=== PATIENT | female | born 1980 | race Caucasian/White ===

== ENCOUNTER → 2017-02-11 | Outpatient (CLI) | payer BC ==
--- NOTE | 2017-02-11 20:02 | XR ---
EXAMINATION TYPE: XR Hip Complete RT DATE OF EXAM: 02/11/2017 COMPARISON: NONE HISTORY: 36 year-old female right hip pain for 2 days TECHNIQUE: 2 views FINDINGS: There is mild degenerative spurring at the right hip. Anterior femoral head neck junction osseous exc rescence is noted. The superior margin of the acetabulum appears prominent. Overall hip joint space i s maintained. No acute fracture or dislocation. IMPRESSION: 1. Mild degenerative changes in the right hip with relatively maintained joint space at this time. 2. Correlate for possible mixed pincer and CAM type femoral acetabular impingement syndrome as a poss ible etiology for the accelerated degenerative change.
== END | disposition home or self-care (01) ==
LOC: RADXRMAIN 17:09
PROVIDERS: ATTEND Family Medicine
DX: M25.851 Other specified joint disorders, right hip (principal); M25.551 Pain in right hip
CPT/HCPCS: 73502

== ENCOUNTER 2019-02-01 13:34 | Emergency (ER) | payer BC ==
[2019-02-01 13:47] VITALS: RESP 18; TEMP 98
[2019-02-01 15:28] LABS: Glucose,Whole Blood 125 mg/dL (75-99)
[2019-02-01] MEDS ORDERED: KETOROLAC 30 MG/ML 1 ML VIAL IVP STA (15:28)
[2019-02-01] MEDS ORDERED: SODIUM CHLORIDE 0.9% 1,000 ML IV STA (15:28)
[2019-02-01 15:59] LABS: Anisocytosis Slight; Basophils % (A) 0 %; Eosinophils # (A) 0.3 k/uL (0-0.7); Eosinophils % (A) 2 %; HCT 42.9 % (34.0-46.0); HGB 13.7 gm/dL (11.4-16.0); Lymphocytes # (A) 2.4 k/uL (1.0-4.8); Lymphocytes % (A) 21 %; MCH 27.2 pg (25.0-35.0); MCHC 32.1 g/dL (31.0-37.0); MCV 84.9 fL (80.0-100.0); Mean Platelet Volume 6.5; Monocytes # (A) 0.4 k/uL (0-1.0); Monocytes % (A) 3 %; Neutrophils # (A) 8.4 k/uL (1.3-7.7); Neutrophils % (A) 72 %; Platelet Count 365 k/uL (150-450); RBC 5.05 m/uL (3.80-5.40); RDW 16.1 % (11.5-15.5); WBC 11.6 k/uL (3.8-10.6)
[2019-02-01 16:07] LABS: ALT 19 U/L (9-52); AST 18 U/L (14-36); African American GFR (CKD) >90 (>60 ml/min/1.73 sqM); Albumin 4.2 g/dL (3.5-5.0); Alkaline Phosphatase 106 U/L (38-126); Anion Gap 11 mmol/L; Blood Urea Nitrogen 10 mg/dL (7-17); Calcium 9.1 mg/dL (8.4-10.2); Carbon Dioxide 23 mmol/L (22-30); Chloride 105 mmol/L (98-107); Creatine Kinase 24 U/L (30-135); Glucose 139 mg/dL (74-99); Potassium 4.2 mmol/L (3.5-5.1); Sodium 139 mmol/L (137-145); Total Bilirubin 0.3 mg/dL (0.2-1.3); Total Protein 8.1 g/dL (6.3-8.2)
--- NOTE | 2019-02-01 16:17 | ED ---
General Adult HPI - General Chief complaint: Recheck/Abnormal Lab/Rx Stated complaint: Dizzy, Sore, Head & Neck Pain Time Seen by Provider: 02/01/19 15:13 Source: patient, RN notes reviewed Mode of arrival: wheelchair Limitations: no limitations - History of Present Illness Initial comments: 38-year-old female with a past medical history of hypertension, NIDDM, PCO S presents for muscle aches. Patient states that over the past several months this has occurred several times where all her muscles ache. States she usually discussed to bed and then this discomfort resolves. However patient states when this started last night she went to bed and expected it to go away. This burning she woke up and she still had some muscle aches. States there th roughout her neck and shoulders arms and legs. Denies fevers or chills. Denies cough congestion sore throat. Denies any difficulty walking. States she has not been drinking fluids because it hurts to move. Patient has no other complaints at this time including shortness of breath, chest pain, abdominal pain, nausea or vomiting, headache, or visual changes. - Related Data Home Medications Medication Instructions Recorded Confirmed Dapagliflozin Propanediol [Farxiga] 10 mg PO HS 02/01/19 02/01/19 Lisinopril [Zestril] 5 mg PO HS 02/01/19 02/01/19 Sertraline HCl [Zoloft] 200 mg PO DAILY 02/01/19 02/01/19 Zolpidem Tartrate [Ambien] 10 mg PO HS PRN 02/01/19 02/01/19 buPROPion HCL [Wellbutrin Sr] 100 mg PO HS 02/01/19 02/01/19 sitaGLIPtin PHOSPHATE [Januvia] 100 mg PO HS 02/01/19 02/01/19 Allergies Allergy/AdvReac Type Severity Reaction Status Date / Time metformin Allergy Abdominal Verified 02/01/19 15:36 Pain Review of Systems ROS Statement: Those systems with pertinent positive or pertinent negative responses have been documented in the HPI. ROS Other: All systems not noted in ROS Statement are negative. Past Medical History Past Medical History: Diabetes Mellitus, Hypertension Additional Past Medical History / Comment(s): POLYCYSTIC OVARIAN SYNDROME History of Any Multi-Drug Resistant Organisms: None Reported Past Surgical History: No Surgical Hx Reported Additional Past Surgical History / Comment(s): BREAST BIOPSY. WISDOM TEETH Past Psychological History: Anxiety, Bipolar, Depression Smoking Status: Never smoker Past Alcohol Use History: None Reported Past Drug Use History: None Reported General Exam Limitations: no limitations General appearance: alert, in no apparent distress Head exam: Present: atraumatic, normocephalic, normal inspection Eye exam: Present: normal appearance, PERRL, EOMI. Absent: scleral icterus, conjunctival injection, periorbital swelling ENT exam: Present: normal exam, mucous membranes moist Neck exam: Present: normal inspection, full ROM. Absent: tenderness, meningismus, lymphadenopathy Respiratory exam: Present: normal lung sounds bilaterally. Absent: respiratory distress, wheezes, rales, rhonchi, stridor Cardiovascular Exam: Present: regular rate, normal rhythm, normal heart sounds. Absent: systolic murmur, diastolic murmur, rubs, gallop, clicks Extremities exam: Present: other (Strength 5 out of 5 in all extremities.). Absent: calf tenderness (No calf tenderness noted.) Neurological exam: Present: alert, oriented X3, normal gait Psychiatric exam: Present: anxious Course Vital Signs 02/01/19 13:44 Temperature 98.0 F Pulse Rate 83 Respiratory 18 Rate Blood Pressure 120/74 O2 Sat by Pulse 99 Oximetry Medical Decision Making - Medical Decision Making 38-year-old female presents with a past medical history of hypertension, NIDDM, PCO S presents for muscle aches. This has been ongoing for several months but usually goes away after she goes to sleep. States that today it did not go away when she expected it to. States it hurts or her generalized muscles. Denies fevers or chills. Denies cough congestion or sore throat. CBC CMP unremarkable. Creatine kinase 24. TSH is normal. Patient was given fluids and Toradol, feeling better at this time. However recommended close follow-up with primary care for additional workup as this has been ongoing for months. Patient does agree to this. She'll return here if she has any worsening symptoms. - Lab Data Result diagrams: 02/01/19 15:47 02/01/19 15:47 Lab Results 02/01/19 02/01/19 02/01/19 Range/Units 15:25 15:47 15:47 WBC 11.6 H (3.8-10.6) k/uL RBC 5.05 (3.80-5.40) m/uL Hgb 13.7 (11.4-16.0) gm/dL Hct 42.9 (34.0-46.0) % MCV 84.9 (80.0-100.0) fL MCH 27.2 (25.0-35.0) pg MCHC 32.1 (31.0-37.0) g/dL RDW 16.1 H (11.5-15.5) % Plt Count 365 (150-450) k/uL Neutrophils % 72 % Lymphocytes % 21 % Monocytes % 3 % Eosinophils % 2 % Basophils % 0 % Neutrophils # 8.4 H (1.3-7.7) k/uL Lymphocytes # 2.4 (1.0-4.8) k/uL Monocytes # 0.4 (0-1.0) k/uL Eosinophils # 0.3 (0-0.7) k/uL Basophils # 0.0 (0-0.2) k/uL Anisocytosis Slight Sodium 139 (137-145) mmol/L Potassium 4.2 (3.5-5.1) mmol/L Chloride 105 (98-107) mmol/L Carbon Dioxide 23 (22-30) mmol/L Anion Gap 11 mmol/L BUN 10 (7-17) mg/dL Creatinine 0.60 (0.52-1.04) mg/dL Est GFR (CKD-EPI)AfAm >90 (>60 ml/min/1.73 sqM) Est GFR (CKD-EPI)NonAf >90 (>60 ml/min/1.73 sqM) Glucose 139 H (74-99) mg/dL POC Glucose (mg/dL) 125 H (75-99) mg/dL POC Glu E [employer] Specialist ID [place], Rahel Calcium 9.1 (8.4-10.2) mg/dL Total Bilirubin 0.3 (0.2-1.3) mg/dL AST 18 (14-36) U/L ALT 19 (9-52) U/L Alkaline Phosphatase 106 (38-126) U/L Creatine Kinase 24 L (30-135) U/L Total Protein 8.1 (6.3-8.2) g/dL Albumin 4.2 (3.5-5.0) g/dL TSH (0.465-4.680) mIU/L 02/01/19 Range/Units 15:47 WBC (3.8-10.6) k/uL RBC (3.80-5.40) m/uL Hgb (11.4-16.0) gm/dL Hct (34.0-46.0) % MCV (80.0-100.0) fL MCH (25.0-35.0) pg MCHC (31.0-37.0) g/dL RDW (11.5-15.5) % Plt Count (150-450) k/uL Neutrophils % % Lymphocytes % % Monocytes % % Eosinophils % % Basophils % % Neutrophils # (1.3-7.7) k/uL Lymphocytes # (1.0-4.8) k/uL Monocytes # (0-1.0) k/uL Eosinophils # (0-0.7) k/uL Basophils # (0-0.2) k/uL Anisocytosis Sodium (137-145) mmol/L Potassium (3.5-5.1) mmol/L Chloride (98-107) mmol/L Carbon Dioxide (22-30) mmol/L Anion Gap mmol/L BUN (7-17) mg/dL Creatinine (0.52-1.04) mg/dL Est GFR (CKD-EPI)AfAm (>60 ml/min/1.73 sqM) Est GFR (CKD-EPI)NonAf (>60 ml/min/1.73 sqM) Glucose (74-99) mg/dL POC Glucose (mg/dL) (75-99) mg/dL POC Glu E [employer] Specialist ID Calcium (8.4-10.2) mg/dL Total Bilirubin (0.2-1.3) mg/dL AST (14-36) U/L ALT (9-52) U/L Alkaline Phosphatase (38-126) U/L Creatine Kinase (30-135) U/L Total Protein (6.3-8.2) g/dL Albumin (3.5-5.0) g/dL TSH 0.985 (0.465-4.680) mIU/L Disposition Clinical Impression: Generalized muscle ache Disposition: HOME SELF-CARE Condition: Good Instructions (If sedation given, give patient instructions): Musculoskeletal Pain (ED) Additional Instructions: These take Motrin and Tylenol for pain. Follow-up with primary care soon as possible. If symptoms worsen return immediately to the emergency department. Is patient prescribed a controlled substance at d/c from ED?: No Referrals: Artie Angel DO [Primary Care Provider] - 1-2 days Time of Disposition: 16:56
[2019-02-01 17:16] VITALS: BP 125/75; PULSE 68
== END 2019-02-01 17:14 | disposition home or self-care (01) ==
LOC: EC 13:34
DX: M79.10 Myalgia, unspecified site (principal); R42 Dizziness and giddiness; E11.9 Type 2 diabetes mellitus without complications; I10 Essential (primary) hypertension; F41.9 Anxiety disorder, unspecified; F31.9 Bipolar disorder, unspecified; Z79.84 Long term (current) use of oral hypoglycemic drugs; Z79.899 Other long term (current) drug therapy; Z88.8 Allergy status to other drugs, medicaments and biological substances
CPT/HCPCS: 36415; 80053; 84443; 82550; 85025; 99284; 96374; 96361; J1885

== ENCOUNTER 2019-04-14 08:24 | Emergency (ER) | payer BC ==
[2019-04-14 08:29] VITALS: TEMP 97.7
[2019-04-14] MEDS ORDERED: SODIUM CHLORIDE 0.9% 1,000 ML IV STA (08:46)
[2019-04-14] MEDS ORDERED: ONDANSETRON 4 MG/2 ML VIAL IVP STA (08:46)
[2019-04-14] MEDS ORDERED: HYDROmorphone 0.5 MG/0.5 ML SYRINGE IVP STA ×3 (08:46→11:10)
[2019-04-14 08:49] LABS: Glucose,Whole Blood 187 mg/dL (75-99)
[2019-04-14 09:01] LABS: Appearance,Urine Clear (Clear); Basophils % (A) 0 %; Bilirubin,Urine Negative (Negative); Blood,Urine Negative (Negative); Color,Urine Yellow; Eosinophils # (A) 0.3 k/uL (0-0.7); Eosinophils % (A) 2 %; Glucose,Urine (UA) 4+ (Negative); HCT 40.7 % (34.0-46.0); HGB 13.2 gm/dL (11.4-16.0); Ketones,Urine Negative (Negative); Leukocyte Esterase,Urine Negative (Negative); Lymphocytes # (A) 1.5 k/uL (1.0-4.8); Lymphocytes % (A) 11 %; MCH 27.7 pg (25.0-35.0); MCHC 32.5 g/dL (31.0-37.0); MCV 85.2 fL (80.0-100.0); Mean Platelet Volume 6.3; Monocytes # (A) 0.4 k/uL (0-1.0); Monocytes % (A) 3 %; Neutrophils # (A) 11.5 k/uL (1.3-7.7); Neutrophils % (A) 83 %; Nitrite,Urine Negative (Negative); PH, Urine 5.5 (5.0-8.0); Platelet Count 331 k/uL (150-450); Protein,Urine Negative (Negative); RBC 4.78 m/uL (3.80-5.40); RDW 14.5 % (11.5-15.5); Urobilinogen,Urine <2.0 mg/dL (<2.0); WBC 13.8 k/uL (3.8-10.6)
[2019-04-14 09:03] VITALS: RESP 18
[2019-04-14 09:12] LABS: ALT 23 U/L (9-52); AST 21 U/L (14-36); African American GFR (CKD) >90 (>60 ml/min/1.73 sqM); Albumin 4.1 g/dL (3.5-5.0); Alkaline Phosphatase 86 U/L (38-126); Amylase 51 U/L (30-110); Anion Gap 12 mmol/L; Blood Urea Nitrogen 15 mg/dL (7-17); Calcium 9.1 mg/dL (8.4-10.2); Carbon Dioxide 22 mmol/L (22-30); Chloride 105 mmol/L (98-107); Glucose 192 mg/dL (74-99); Non-African American GFR(CKD) >90 (>60 ml/min/1.73 sqM); Sodium 139 mmol/L (137-145); Total Bilirubin 0.5 mg/dL (0.2-1.3); Total Protein 7.7 g/dL (6.3-8.2)
[2019-04-14 09:14] LABS: Specific Gravity,Urine >1.050 (1.001-1.035)
--- NOTE | 2019-04-14 09:20 | ED ---
Abdominal Pain HPI - General Chief Complaint: Abdominal Pain Stated Complaint: TREMORS Time Seen by Provider: 04/14/19 08:31 Source: patient, RN notes reviewed Mode of arrival: ambulatory Limitations: no limitations - History of Present Illness Initial Comments: 38-year-old female presents emergency Department with chief complaint of abdominal pain. Patient states started yesterday and midepigastric region. Patient states that she started having this worsen onset of pain which seems to wax and wane. Patient states that she has spasms in her abdomen. She's had no prior abdominal surgeries. She does have nausea with one episode of vomiting no diarrhea no constipation or dysuria no hematuria. Patient has a known diabetic controlled on oral medications. That the pain does wax and wane does not radiate to her flank, back or chest. - Related Data Home Medications Medication Instructions Recorded Confirmed Dapagliflozin Propanediol [Farxiga] 10 mg PO HS 02/01/19 04/14/19 Lisinopril [Zestril] 5 mg PO HS 02/01/19 04/14/19 Sertraline HCl [Zoloft] 200 mg PO DAILY 02/01/19 04/14/19 Zolpidem Tartrate [Ambien] 10 mg PO QAM PRN 02/01/19 04/14/19 buPROPion HCL [Wellbutrin Sr] 100 mg PO HS 02/01/19 04/14/19 sitaGLIPtin PHOSPHATE [Januvia] 100 mg PO HS 02/01/19 04/14/19 Previous Rx's Medication Instructions Recorded Hyoscyamine Sulfate [Levsin] 0.125 mg PO QID PRN #14 tab 04/14/19 Omeprazole [PriLOSEC] 20 mg PO AC-BRKFST #14 cap 04/14/19 Ondansetron Odt [Zofran Odt] 4 mg PO Q8HR PRN #10 tab 04/14/19 Allergies Allergy/AdvReac Type Severity Reaction Status Date / Time metformin Allergy Nausea/Vomiting/Diarrhea/STOMACH Verified 04/14/19 09:54 PAIN Review of Systems ROS Statement: Those systems with pertinent positive or pertinent negative responses have been documented in the HPI. ROS Other: All systems not noted in ROS Statement are negative. Past Medical History Past Medical History: Diabetes Mellitus, Hypertension Additional Past Medical History / Comment(s): POLYCYSTIC OVARIAN SYNDROME History of Any Multi-Drug Resistant Organisms: None Reported Past Surgical History: No Surgical Hx Reported Additional Past Surgical History / Comment(s): BREAST BIOPSY. WISDOM TEETH Past Psychological History: Anxiety, Bipolar, Depression Smoking Status: Never smoker Past Alcohol Use History: None Reported Past Drug Use History: None Reported General Exam Limitations: no limitations General appearance: alert, in no apparent distress Head exam: Present: atraumatic, normocephalic, normal inspection Eye exam: Present: normal appearance, PERRL, EOMI. Absent: scleral icterus, conjunctival injection, periorbital swelling ENT exam: Present: normal exam, normal oropharynx, mucous membranes moist, TM's normal bilaterally Neck exam: Present: normal inspection, full ROM. Absent: tenderness, meningismus, lymphadenopathy Respiratory exam: Present: normal lung sounds bilaterally. Absent: respiratory distress, wheezes, rales, rhonchi, stridor Cardiovascular Exam: Present: regular rate, normal rhythm, normal heart sounds. Absent: systolic murmur, diastolic murmur, rubs, gallop, clicks GI/Abdominal exam: Present: soft, tenderness (Moderate epigastric, mid abdominal tenderness with mild right upper quadrant), normal bowel sounds. Absent: distended, guarding, rebound, rigid Back exam: Absent: CVA tenderness (R), CVA tenderness (L) Neurological exam: Present: alert, oriented X3, CN II-XII intact Skin exam: Present: warm, dry, intact, normal color. Absent: rash Course Vital Signs 04/14/19 04/14/19 08:26 09:02 Temperature 97.7 F Pulse Rate 76 80 Respiratory 20 18 Rate Blood Pressure 152/95 129/75 O2 Sat by Pulse 100 98 Oximetry Medical Decision Making - Medical Decision Making Patient is improved after medications, IV fluids, greatest improvement after GI cocktail. Patient ultrasound SHOWS MULTIPLE GALLSTONES. LAB WORK SHOWS MILD HYPERGLYCEMIA THOUGH SHE IS KNOWN DIABETIC. SHE WAS HYDRATED, NAUSEA IS UNDER CONTROL. PATIENT WILL BE FOLLOWED UP WITH GENERAL SURGERY AT THIS TIME. RETURN PARAMETERS WERE DISCUSSED. PATIENT AGREES WITH THIS PLAN. PATIENT his charge in stable condition - Lab Data Result diagrams: 04/14/19 08:50 04/14/19 08:50 Lab Results 04/14/19 04/14/19 04/14/19 Range/Units 08:48 08:50 08:50 WBC 13.8 H (3.8-10.6) k/uL RBC 4.78 (3.80-5.40) m/uL Hgb 13.2 (11.4-16.0) gm/dL Hct 40.7 (34.0-46.0) % MCV 85.2 (80.0-100.0) fL MCH 27.7 (25.0-35.0) pg MCHC 32.5 (31.0-37.0) g/dL RDW 14.5 (11.5-15.5) % Plt Count 331 (150-450) k/uL Neutrophils % 83 % Lymphocytes % 11 % Monocytes % 3 % Eosinophils % 2 % Basophils % 0 % Neutrophils # 11.5 H (1.3-7.7) k/uL Lymphocytes # 1.5 (1.0-4.8) k/uL Monocytes # 0.4 (0-1.0) k/uL Eosinophils # 0.3 (0-0.7) k/uL Basophils # 0.0 (0-0.2) k/uL Sodium 139 (137-145) mmol/L Potassium 4.0 (3.5-5.1) mmol/L Chloride 105 (98-107) mmol/L Carbon Dioxide 22 (22-30) mmol/L Anion Gap 12 mmol/L BUN 15 (7-17) mg/dL Creatinine 0.57 (0.52-1.04) mg/dL Est GFR (CKD-EPI)AfAm >90 (>60 ml/min/1.73 sqM) Est GFR (CKD-EPI)NonAf >90 (>60 ml/min/1.73 sqM) Glucose 192 H (74-99) mg/dL POC Glucose (mg/dL) 187 H (75-99) mg/dL POC Glu Model And [employer] Maker Plaster ID Lola Montes Plasma Lactic Acid Tomasz (0.7-2.0) mmol/L Calcium 9.1 (8.4-10.2) mg/dL Total Bilirubin 0.5 (0.2-1.3) mg/dL AST 21 (14-36) U/L ALT 23 (9-52) U/L Alkaline Phosphatase 86 (38-126) U/L Troponin I (0.000-0.034) ng/mL Total Protein 7.7 (6.3-8.2) g/dL Albumin 4.1 (3.5-5.0) g/dL Amylase 51 (30-110) U/L Lipase 171 (23-300) U/L Urine Color Urine Appearance (Clear) Urine pH (5.0-8.0) Ur Specific [place] (1.001-1.035) Urine Protein (Negative) Urine Glucose (UA) (Negative) Urine Ketones (Negative) Urine Blood (Negative) Urine Nitrite (Negative) Urine Bilirubin (Negative) Urine Urobilinogen (<2.0) mg/dL Ur Leukocyte Esterase (Negative) Urine HCG, Qual (Not Detectd) 04/14/19 04/14/19 04/14/19 Range/Units 08:50 08:50 08:50 WBC (3.8-10.6) k/uL RBC (3.80-5.40) m/uL Hgb (11.4-16.0) gm/dL Hct (34.0-46.0) % MCV (80.0-100.0) fL MCH (25.0-35.0) pg MCHC (31.0-37.0) g/dL RDW (11.5-15.5) % Plt Count (150-450) k/uL Neutrophils % % Lymphocytes % % Monocytes % % Eosinophils % % Basophils % % Neutrophils # (1.3-7.7) k/uL Lymphocytes # (1.0-4.8) k/uL Monocytes # (0-1.0) k/uL Eosinophils # (0-0.7) k/uL Basophils # (0-0.2) k/uL Sodium (137-145) mmol/L Potassium (3.5-5.1) mmol/L Chloride (98-107) mmol/L Carbon Dioxide (22-30) mmol/L Anion Gap mmol/L BUN (7-17) mg/dL Creatinine (0.52-1.04) mg/dL Est GFR (CKD-EPI)AfAm (>60 ml/min/1.73 sqM) Est GFR (CKD-EPI)NonAf (>60 ml/min/1.73 sqM) Glucose (74-99) mg/dL POC Glucose (mg/dL) (75-99) mg/dL POC Glu Model And [employer] Maker Plaster ID Plasma Lactic Acid Tomasz 2.2 H* (0.7-2.0) mmol/L Calcium (8.4-10.2) mg/dL Total Bilirubin (0.2-1.3) mg/dL AST (14-36) U/L ALT (9-52) U/L Alkaline Phosphatase (38-126) U/L Troponin I <0.012 (0.000-0.034) ng/mL Total Protein (6.3-8.2) g/dL Albumin (3.5-5.0) g/dL Amylase (30-110) U/L Lipase (23-300) U/L Urine Color Urine Appearance (Clear) Urine pH (5.0-8.0) Ur Specific [place] (1.001-1.035) Urine Protein (Negative) Urine Glucose (UA) (Negative) Urine Ketones (Negative) Urine Blood (Negative) Urine Nitrite (Negative) Urine Bilirubin (Negative) Urine Urobilinogen (<2.0) mg/dL Ur Leukocyte Esterase (Negative) Urine HCG, Qual Not Detected (Not Detectd) 04/14/19 Range/Units 08:50 WBC (3.8-10.6) k/uL RBC (3.80-5.40) m/uL Hgb (11.4-16.0) gm/dL Hct (34.0-46.0) % MCV (80.0-100.0) fL MCH (25.0-35.0) pg MCHC (31.0-37.0) g/dL RDW (11.5-15.5) % Plt Count (150-450) k/uL Neutrophils % % Lymphocytes % % Monocytes % % Eosinophils % % Basophils % % Neutrophils # (1.3-7.7) k/uL Lymphocytes # (1.0-4.8) k/uL Monocytes # (0-1.0) k/uL Eosinophils # (0-0.7) k/uL Basophils # (0-0.2) k/uL Sodium (137-145) mmol/L Potassium (3.5-5.1) mmol/L Chloride (98-107) mmol/L Carbon Dioxide (22-30) mmol/L Anion Gap mmol/L BUN (7-17) mg/dL Creatinine (0.52-1.04) mg/dL Est GFR (CKD-EPI)AfAm (>60 ml/min/1.73 sqM) Est GFR (CKD-EPI)NonAf (>60 ml/min/1.73 sqM) Glucose (74-99) mg/dL POC Glucose (mg/dL) (75-99) mg/dL POC Glu Model And [employer] Maker Plaster ID Plasma Lactic Acid Tomasz (0.7-2.0) mmol/L Calcium (8.4-10.2) mg/dL Total Bilirubin (0.2-1.3) mg/dL AST (14-36) U/L ALT (9-52) U/L Alkaline Phosphatase (38-126) U/L Troponin I (0.000-0.034) ng/mL Total Protein (6.3-8.2) g/dL Albumin (3.5-5.0) g/dL Amylase (30-110) U/L Lipase (23-300) U/L Urine Color Yellow Urine Appearance Clear (Clear) Urine pH 5.5 (5.0-8.0) Ur Specific [place] >1.050 H (1.001-1.035) Urine Protein Negative (Negative) Urine Glucose (UA) 4+ H (Negative) Urine Ketones Negative (Negative) Urine Blood Negative (Negative) Urine Nitrite Negative (Negative) Urine Bilirubin Negative (Negative) Urine Urobilinogen <2.0 (<2.0) mg/dL Ur Leukocyte Esterase Negative (Negative) Urine HCG, Qual (Not Detectd) Disposition Clinical Impression: Nausea & vomiting, Gall stones, Abdominal pain Disposition: HOME SELF-CARE Condition: Stable Instructions (If sedation given, give patient instructions): Abdominal Pain (E D) Additional Instructions: Please return to the Emergency Department if symptoms worsen or any other concerns. Prescriptions: Hyoscyamine Sulfate [Levsin] 0.125 mg PO QID PRN #14 tab PRN Reason: Spasms Omeprazole [PriLOSEC] 20 mg PO AC-BRKFST #14 cap Ondansetron Odt [Zofran Odt] 4 mg PO Q8HR PRN #10 tab PRN Reason: Nausea Is patient prescribed a controlled substance at d/c from ED?: No Referrals: Artie Angel DO [Primary Care Provider] - 1-2 days Dali Fischer MD [STAFF PHYSICIAN] - 1-2 days Time of Disposition: 10:51
[2019-04-14] MEDS ORDERED: DIAZEPAM 5 MG/ML 2 ML INJ IVP STA (09:28)
--- NOTE | 2019-04-14 09:41 | US ---
EXAMINATION TYPE: US gallbladder DATE OF EXAM: 04/14/2019 COMPARISON: NONE CLINICAL HISTORY: pain. epigastric pain, tremors, nausea and vomiting EXAM MEASUREMENTS: Liver Length: 20.7 cm Gallbladder Wall: 0.3 cm CBD: 0.3 cm Right Kidney: 12.0 x 4.9 x 4.4 cm Technical limitations due to patient's body habitus and patient unable to hold still Pancreas: Obscured by bowel gas Liver: enlarged, attenuating, unable to penetrate Gallbladder: stones noted Evidence for sonographic Starr's sign: yes CBD: limited evaluation Right Kidney: no evidence of hydronephrosis IMPRESSION: 1. Hepatomegaly with underlying fatty hepatic infiltration. 2. Cholelithiasis without complicating factor.
[2019-04-14] MEDS ORDERED: MAG HYDROX/AL HYDROX/SIMETH 30 ML, HYOSCYAMINE ELIXIR 10 ML PO STA ×2 (10:24)
[2019-04-14] MEDS ORDERED: ACET/COD 300 MG/30 MG STARTER PACK 6 TAB BTL PO STA (10:51)
[2019-04-14 11:02] VITALS: BP 109/63; PULSE 74
[2019-04-14] MEDS ORDERED: diphenhydrAMINE 50 MG/ML 1 ML VIAL IVP STA (11:10)
== END 2019-04-14 11:21 | disposition home or self-care (01) ==
LOC: EC 08:24
DX: K80.20 Calculus of gallbladder without cholecystitis without obstruction (principal); E11.65 Type 2 diabetes mellitus with hyperglycemia; F41.9 Anxiety disorder, unspecified; F31.9 Bipolar disorder, unspecified; I10 Essential (primary) hypertension; E28.2 Polycystic ovarian syndrome; Z79.84 Long term (current) use of oral hypoglycemic drugs; Z79.899 Other long term (current) drug therapy; Z88.8 Allergy status to other drugs, medicaments and biological substances
CPT/HCPCS: 36415; 80053; 82150; 83605; 83690; 84484; 85025; 81003; 81025; 76705; 99284; 96374; 96375 ×3; 96376 ×2; 96361; J1200; J3360; J2405; J1170

== ENCOUNTER → 2019-04-28 | Outpatient (CLI) | payer BC ==
--- NOTE | 2019-04-28 09:36 | XR ---
EXAMINATION TYPE: XR knee complete RT DATE OF EXAM: 04/28/2019 COMPARISON: None HISTORY: Pain in right knee x2 weeks TECHNIQUE: Three-view FINDINGS: No acute fractures or dislocations are evident. No significant joint effusion is evident. T iny lateral tibial plateau spur and lateral femoral condylar spur is present. May be some mild diffus e narrowing of the medial lateral compartment joint spaces. IMPRESSION: 1. Mild degenerative joint changes. 2. No acute osseous abnormality radiographically apparent.
== END | disposition home or self-care (01) ==
LOC: RADXRMAIN 08:43
PROVIDERS: ATTEND Family Medicine
DX: M17.11 Unilateral primary osteoarthritis, right knee (principal)

== ENCOUNTER 2019-06-11 09:12 | Day surgery (SDC) | payer BC ==
[2019-06-09 18:16] VITALS: BMI 43.4
--- NOTE | 2019-06-10 21:33 | P.GSHP ---
History of Present Illness H&P Date: 06/11/19 CHIEF COMPLAINT: Cholecystitis HISTORY OF PRESENT ILLNESS: The patient is a 39-year-old female who presents with history of epigastric including right upper quadrant abdominal pain. She underwent diagnostic studies for her gallbladder. Separately her clinical picture was consistent with cholecystitis. Now she presents for surgical intervention. PAST MEDICAL HISTORY: Please see list PAST SURGICAL HISTORY: Please see list MEDICATIONS: Please see list ALLERGIES: Please see list SOCIAL HISTORY: Please see list FAMILY HISTORY: Please see list REVIEW OF ORGAN SYSTEMS: CONSTITUTIONAL: No reports of fevers or chills. HEENT: Denies any troubles with the vision or hearing. PHYSICAL EXAM: VITAL SIGNS: Afebrile vital signs stable GENERAL: Well-developed pleasant in no acute distress. HEENT: No scleral icterus. Extraocular movements grossly intact. Moist buccal mucosa. NECK: Supple without lymphadenopathy. CHEST: Unlabored respirations. Equal bilateral excursions. CARDIOVASCULAR: Regular rate regular rhythm rhythm. Distal 2+ pulses. ABDOMEN: Soft, nondistended. Tender along the epigastrium and right upper quadrant. MUSCULOSKELETAL: No clubbing, cyanosis, or edema. NEURO: Cranial nerves II to XII within normal limits. No focal or lateralizing signs. PSYCH: Alert and oriented to person, place and time. SKIN: Well-perfused good skin turgor. ASSESSMENT: 1. Epigastric and right upper quadrant abdominal pain 2. Chronic cholecystitis 3. Symptomatic gallstones. PLAN: 1. Will need a robotic cholecystectomy possible open. Benefits and risks were described. 2. Heparin for DVT prophylaxis 5000 units. 3. Antibiotic prophylaxis. Past Medical History Past Medical History: Diabetes Mellitus, Hypertension, Osteoarthritis (OA) Additional Past Medical History / Comment(s): POLYCYSTIC OVARIAN SYNDROME. Varicose veins. History of Any Multi-Drug Resistant Organisms: None Reported Past Surgical History: Breast Surgery Additional Past Surgical History / Comment(s): BREAST BIOPSY. WISDOM TEETH Past Anesthesia/Blood Transfusion Reactions: Motion Sickness Smoking Status: Never smoker - Past Family History Mother Family Medical History: No Reported History Medications and Allergies Home Medications Medication Instructions Recorded Confirmed Type Dapagliflozin Propanediol [Farxiga] 10 mg PO HS 02/01/19 06/09/19 History Lisinopril [Zestril] 5 mg PO HS 02/01/19 06/09/19 History Zolpidem Tartrate [Ambien] 10 mg PO HS PRN 02/01/19 06/09/19 History sitaGLIPtin PHOSPHATE [Januvia] 100 mg PO HS 02/01/19 06/09/19 History DULoxetine HCL [Cymbalta] 60 mg PO DAILY 06/09/19 06/09/19 History Ibuprofen [Motrin] 600 mg PO DIRECTED PRN 06/09/19 06/09/19 History Allergies Allergy/AdvReac Type Severity Reaction Status Date / Time metformin Allergy Nausea/Vomiting/Diarrhea/STOMACH Verified 06/09/19 17:59 PAIN
[~2019-06-11 09:12] MED LIST: ACETAMINOPHEN TAB 500 MG TAB PO STA; DEXAMETHASONE SOD PHOSPHATE 10 MG/ML 1 ML VIAL IV ONE; GABAPENTIN 300 MG CAP PO STA; HEPARIN SODIUM,PORCINE 5,000 UNIT/ML 1 ML VIAL SQ ONE; HYDROmorphone 0.5 MG/0.5 ML SYRINGE IVP PRN; INDOCYANINE GREEN 25 MG VIAL IV STA; LACTATED RINGERS 1,000 ML IV SCH; MIDAZOLAM 2 MG/2 ML VIAL IV PRN; SCOPOLAMINE 1.5MG/72HR PATCH TRANSDERM ONE; SCOPOLAMINE 1.5MG/72HR PATCH TRANSDERM STA; ceFAZolin 3 GM in SODIUM CHLORIDE 0.9% 100 ML IVPB ONE
[2019-06-11 09:46] LABS: Glucose,Whole Blood 255 mg/dL (75-99)
[2019-06-11] MEDS ORDERED: INSULIN ASPART (NovoLOG) 100 UNIT/ML VIAL SQ ONE ×2 (09:51→14:19)
[2019-06-11] MEDS ORDERED: LIDOCAINE 1% 20 ML VIAL (10MG/ML) FOR IV START INTRADERMA ONE (09:51)
[2019-06-11] MEDS: ONDANSETRON 4 MG/2 ML VIAL IVP ONE ×2 (10:01→13:58)
[2019-06-11 10:16] LABS: HCT 39.9 % (34.0-46.0); HGB 12.7 gm/dL (11.4-16.0); MCH 27.5 pg (25.0-35.0); MCV 86.1 fL (80.0-100.0); Mean Platelet Volume 7.6; Platelet Count 341 k/uL (150-450); RBC 4.63 m/uL (3.80-5.40); RDW 14.4 % (11.5-15.5); WBC 9.6 k/uL (3.8-10.6)
[2019-06-11] MEDS ORDERED: LIDOCAINE 1% INJ 10MG/ML (20 ML MDV) ONE (11:51)
[2019-06-11] MEDS ORDERED: GLYCOPYRROLATE 0.2 MG/ML 2 ML VIAL ONE (11:51)
[2019-06-11] MEDS ORDERED: MIDAZOLAM 2 MG/2 ML VIAL ONE (11:51)
[2019-06-11] MEDS ORDERED: PROPOFOL 10 MG/ML 20 ML VIAL IV ONE (11:51)
[2019-06-11] MEDS ORDERED: ROCURONIUM BROMIDE 10 MG/ML 10 ML VIAL IV ONE (11:51)
[2019-06-11] MEDS ORDERED: fentaNYL (PF) 50 MCG/ML 2 ML AMP ONE (11:51)
[2019-06-11] MEDS ORDERED: SUCCINYLCHOLINE CHLORIDE 100 MG/5 ML SYR IV ONE (11:51)
[2019-06-11] MEDS ORDERED: NEOSTIGMINE 1 MG/ML 10 ML VIAL ONE (11:51)
[2019-06-11] MEDS ORDERED: INDOCYANINE GREEN 25 MG VIAL IV ONE (11:51)
[2019-06-11] MEDS ORDERED: KETAMINE 10 MG/ML 20 ML VIAL ONE (11:51)
[2019-06-11] MEDS ORDERED: IV FLUID CONTINUATION 1,000 ML IV ONE ×2 (11:56)
[2019-06-11] MEDS ORDERED: LIDOCAINE 2%-EPI 1:100,000 20 ML VIAL SQ ONE ×2 (12:25→12:31)
--- NOTE | 2019-06-11 13:25 | P.OP ---
Date of Procedure: 06/11/19 Description of Procedure: SURGEON: DALI FISCHER MD PREOPERATIVE DIAGNOSES: 1. Right upper quadrant abdominal pain 2. Symptomatic gallstones 3. Chronic cholecystitis 4. Diabetes type 2, [id number] 5. Depressive disorder 6. Morbid obesity due to excess calories, BMI 44.3 7. Hypertensive heart disease POSTOPERATIVE DIAGNOSES: 1. Right upper quadrant abdominal pain 2. Symptomatic gallstones 3. Chronic cholecystitis 4. Diabetes type 2, [id number] 5. Depressive disorder 6. Morbid obesity due to excess calories, BMI 44.3 7. Hypertensive heart disease OPERATION: Robotic-assisted da Ashleigh Xi laparoscopic cholecystectomy, multiport with FIREFLY ESTIMATED BLOOD LOSS: 5 mL. SPECIMENS REMOVED: Gallbladder. COMPLICATIONS: None. OPERATIVE FINDINGS: 1. Chronic cholecystitis 2. Console time 12 minutes INDICATIONS: The patient is a 39-year-old female who presents with cholelcystitis. Surgical intervention with a laparoscopic cholecystectomy was described at length including injury to the biliary tree, bleeding, infection, need for further surgery. Informed consent was obtained. Robotic assisted laparoscopic approach was described. Benefits and risks of the procedure including but not limited to bleeding, infection, injury to the biliary tree was described. Informed consent was obtained. DESCRIPTION OF PROCEDURE: Patient was brought to the operating room, placed in supine position. After general induction, the abdomen had been prepped and draped in standard sterile fashion. The robotic da Ashleigh XI system was primed. After a timeout protocol was performed, the patient had been prepped and draped in standard sterile fashion. The patient was injected with indocyanine green. A 5 mm 0 degrees laparoscopic trocar entry was performed along the left upper quadrant. The abdomen insufflated to 15 mmHg pressure which was tolerated well. Diagnostic laparoscopy demonstrated no injury to bowel viscera or mesentery. The liver surface was unremarkable. Next, two 8 mm robotic ports were placed along the right upper abdomen. The camera 8-mm port was maintained along the epigastrium. Another 8 mm port was placed along the left upper abdominal wall after exchanging the 5 mm port. Please note that the ports were placed at least 10 to 15 cm away from the target anatomy of the gallbladder. The robot was docked along the left lateral abdomen. The patient was repositioned in reverse Trendelenburg position. Using a grasper for arm 3, a grasper for arm 4, including hook cautery for arm 1, the robotic system was docked and primed as described. Instruments were interchanged by the assistant finance manager including hook cautery, Bovie cautery and clip appliers. I had sat at the console. The gallbladder fundus was retracted over the dome of the liver. Initial attention was brought to the infundibulum which was gently retracted in the inferior lateral approach. Using a grasper, the cystic duct including the cystic artery was carefully skeletonized. FIREFLY was used to identify the cystic artery and cystic structures. A critical view of safety was obtained. Large PLASTIC clips were used throughout the entire case. Using a clip manager programs 2 clips were placed proximally, and 1 clip was placed between the infundibulum and cystic duct and divided using cautery. Next, the cystic artery was similarly clipped and cauterized. Electro-Bovie cautery was used to remove the gallbladder from the hepatic fossa. Hemostasis was checked and found to be adequate. The robot was undocked. I re-scrubbed into the case. Using a 10 mm Endo Catch bag via the left upper quadrant incision, the specimen was removed from the abdominal cavity. All pneumoperitoneum instruments were evacuated from the abdominal cavity. The incisions were reapproximated using 4-0 Monocryl in an interrupted subcuticular fashion. Fascial defects were less than 8 mm in size. Please note along the trocar sites, local anesthetic was placed as a field block prior to insertion of all instruments. Liquid glue was applied to the skin. At the end of the procedure needle, sponge, and instrument count had been verified correct by the surgical supplies sterilizer. The patient was transferred to postanesthesia care unit in stable condition. Intraoperative films were shared with the patient's family who were very pleased with the level of care. Plan - Discharge Summary Discharge Rx Participant: No New Discharge Prescriptions: New Acetaminophen [Tylenol] 650 mg PO Q6HR PRN #30 capsule PRN Reason: Pain Naproxen [Naprosyn] 375 mg PO Q12HR PRN #30 tablet PRN Reason: Pain Continue sitaGLIPtin PHOSPHATE [Januvia] 100 mg PO HS Zolpidem Tartrate [Ambien] 10 mg PO HS PRN PRN Reason: Insomnia Lisinopril [Zestril] 5 mg PO HS Dapagliflozin Propanediol [Farxiga] 10 mg PO HS Ibuprofen [Motrin] 600 mg PO DIRECTED PRN PRN Reason: Pain DULoxetine HCL [Cymbalta] 60 mg PO DAILY Discharge Medication List Dapagliflozin Propanediol [Farxiga] 10 mg PO HS 02/01/19 [History] Lisinopril [Zestril] 5 mg PO HS 02/01/19 [History] Zolpidem Tartrate [Ambien] 10 mg PO HS PRN 02/01/19 [History] sitaGLIPtin PHOSPHATE [Januvia] 100 mg PO HS 02/01/19 [History] DULoxetine HCL [Cymbalta] 60 mg PO DAILY 06/09/19 [History] Ibuprofen [Motrin] 600 mg PO DIRECTED PRN 06/09/19 [History] Acetaminophen [Tylenol] 650 mg PO Q6HR PRN #30 capsule 06/11/19 [Rx] Naproxen [Naprosyn] 375 mg PO Q12HR PRN #30 tablet 06/11/19 [Rx] Follow up Appointment(s)/Referral(s): Dali Fischer MD [STAFF PHYSICIAN] - 06/15/19 Patient Instructions/Handouts: *Surgery [facility] - Scopalamine Patch Instructions, Laparoscopic Cholecystectomy (DC) Activity/Diet/Wound Care/Special Instructions: No lifting over 10 pounds in 2 weeks until Jun 25. May shower. No bath tub soaks for two weeks until Jun 25 Diet as tolerated. Use Tylenol and ibuprofen or Aleve scheduled for the next 24-48 hours for best pain relief. Use ice along incisions for the today to prevent swelling. Discharge Disposition: HOME SELF-CARE
[2019-06-11 13:27] VITALS: TEMP 97.9
[2019-06-11 13:32] LABS: Glucose,Whole Blood 286 mg/dL (75-99)
[2019-06-11 13:32] LABS: Glucose,Whole Blood 308 mg/dL (75-99)
[2019-06-11 14:20] VITALS: RESP 16
[2019-06-11] MEDS ORDERED: LACTATED RINGERS 1,000 ML IV ONE (14:20)
[2019-06-11] MEDS ORDERED: ACETAMINOPHEN TAB 325 MG TAB PO ONE (15:10)
[2019-06-11 15:20] VITALS: BP 112/74; PULSE 71
[2019-06-11 15:59] LABS: Glucose,Whole Blood 285 mg/dL (75-99)
== END 2019-06-11 16:23 | disposition home or self-care (01) ==
LOC: OR 09:12
PROVIDERS: ATTEND Surgery Plastic and Reconstructive Surgery
DX: K81.1 Chronic cholecystitis (principal); I11.9 Hypertensive heart disease without heart failure; E11.9 Type 2 diabetes mellitus without complications; E66.01 Morbid (severe) obesity due to excess calories; E28.2 Polycystic ovarian syndrome; I83.90 Asymptomatic varicose veins of unspecified lower extremity; F32.9 Major depressive disorder, single episode, unspecified; M19.90 Unspecified osteoarthritis, unspecified site; Z68.41 Body mass index [BMI] 40.0-44.9, adult; Z98.818 Other dental procedure status; Z88.8 Allergy status to other drugs, medicaments and biological substances; Z79.84 Long term (current) use of oral hypoglycemic drugs; Z79.899 Other long term (current) drug therapy
CPT/HCPCS: 47562; 81025; 88304; 85027; J2250; J1644; J1100; J2710; J0690; J2405; J2001; J3010; J0330; J2704; J1170; 93005

== ENCOUNTER 2020-09-29 12:04 | Emergency (ER) | payer BC ==
[2020-09-29 12:30] LABS: Glucose,Whole Blood 322 mg/dL (75-99)
[2020-09-29 12:32] VITALS: TEMP 97.7
--- NOTE | 2020-09-29 14:09 | ED ---
General Adult HPI - General Chief complaint: Recheck/Abnormal Lab/Rx Stated complaint: High blood sugar Time Seen by Provider: 09/29/20 13:55 Source: patient Mode of arrival: ambulatory Limitations: no limitations - History of Present Illness Initial comments: Dictation was produced using [employer] dictation software. please excuse any grammatical, word or spelling errors. Chief Complaint: 40-year-old female presents to the emergency department for hyperglycemia History of Present Illness: And 10-year-old female she's been diagnosed with diabetes for several months now. Patient states that she's been having elevated sugars for the last several days. Patient's most recent hemoglobin A1c was in the 12% range. Prior to that it was 11% range. She was started on insulin recently. She states she takes a long-acting insulin 30 mL daily. States that she recently started utilizing her glucometer and noticed that her sugars have been consistently high. States that she's been feeling dehydrated with some symptoms of neuropathy. The ROS documented in this emergency department record has been reviewed and confirmed by me. Those systems with pertinent positive or negative responses have been documented in the HPI. All other systems are other negative and/or noncontributory. PHYSICAL EXAM: General Impression: Alert and oriented x3, not in acute distress HEENT: Normocephalic atraumatic, extra-ocular movements intact, pupils equal and reactive to light bilaterally, mucous membranes moist. Cardiovascular: Heart regular rate and rhythm Chest: Able to complete full sentences, no retractions, no tachypnea Abdomen: abdomen soft, non-tender, non-distended, no organomegaly Musculoskeletal: Pulses present and equal in all extremities, no peripheral edema Motor: no focal deficits noted Neurological: CN II-XII grossly intact, no focal motor or sensory deficits noted Skin: Intact with no visualized rashes Psych: Normal affect and mood ED course: 40-year-old who presents with hyperglycemia. Patient having symptomatic hyperglycemia. Vital Signs upon arrival are within acceptable limits. Laboratory evaluation obtained. CBC, metabolic panel is unremarkable. Glucose is 308. Patient given insulin and intravenous fluids with improvement of sugars. Patient told to follow up closely with her primary care physician for more intensive outpatient diabetes management. Patient given referral to production coordinator. - Related Data Home Medications Medication Instructions Recorded Confirmed Dapagliflozin Propanediol [Farxiga] 10 mg PO HS 02/01/19 06/11/19 Zolpidem Tartrate [Ambien] 10 mg PO HS PRN 02/01/19 06/11/19 lisinopriL [Zestril] 5 mg PO HS 02/01/19 06/11/19 sitaGLIPtin PHOSPHATE [Januvia] 100 mg PO HS 02/01/19 06/11/19 DULoxetine HCL [Cymbalta] 60 mg PO DAILY 06/09/19 06/11/19 Ibuprofen [Motrin] 600 mg PO DIRECTED PRN 06/09/19 06/09/19 Previous Rx's Medication Instructions Recorded Acetaminophen [Tylenol] 650 mg PO Q6HR PRN #30 capsule 06/11/19 Naproxen [Naprosyn] 375 mg PO Q12HR PRN #30 tablet 06/11/19 Allergies Allergy/AdvReac Type Severity Reaction Status Date / Time metformin Allergy Nausea/Vomiting/Diarrhea/STOMACH Verified 09/29/20 12:32 PAIN Review of Systems ROS Statement: Those systems with pertinent positive or pertinent negative responses have been documented in the HPI. ROS Other: All systems not noted in ROS Statement are negative. Past Medical History Past Medical History: Diabetes Mellitus, Hypertension, Osteoarthritis (OA) Additional Past Medical History / Comment(s): POLYCYSTIC OVARIAN SYNDROME. Owen icose veins. History of Any Multi-Drug Resistant Organisms: None Reported Past Surgical History: Breast Surgery Additional Past Surgical History / Comment(s): BREAST BIOPSY. WISDOM TEETH Past Anesthesia/Blood Transfusion Reactions: Motion Sickness Past Psychological History: Anxiety, Bipolar, Depression Smoking Status: Never smoker Past Alcohol Use History: None Reported Past Drug Use History: None Reported - Past Family History Mother Family Medical History: No Reported History General Exam Limitations: no limitations Course Vital Signs 09/29/20 09/29/20 12:27 14:11 Temperature 97.7 F Pulse Rate 83 84 Respiratory 20 16 Rate Blood Pressure 130/90 127/89 O2 Sat by Pulse 100 98 Oximetry Medical Decision Making - Lab Data Result diagrams: 09/29/20 14:10 09/29/20 14:10 Lab Results 09/29/20 09/29/20 09/29/20 Range/Units 12:28 14:10 14:10 WBC 10.1 (3.8-10.6) k/uL RBC 4.85 (3.80-5.40) m/uL Hgb 14.5 (11.4-16.0) gm/dL Hct 43.1 (34.0-46.0) % MCV 89.0 (80.0-100.0) fL MCH 29.8 (25.0-35.0) pg MCHC 33.5 (31.0-37.0) g/dL RDW 13.5 (11.5-15.5) % Plt Count 379 (150-450) k/uL MPV 7.0 Neutrophils % 71 % Lymphocytes % 22 % Monocytes % 4 % Eosinophils % 2 % Basophils % 0 % Neutrophils # 7.2 (1.3-7.7) k/uL Lymphocytes # 2.2 (1.0-4.8) k/uL Monocytes # 0.4 (0-1.0) k/uL Eosinophils # 0.2 (0-0.7) k/uL Basophils # 0.0 (0-0.2) k/uL Sodium 136 L (137-145) mmol/L Potassium 4.4 (3.5-5.1) mmol/L Chloride 104 (98-107) mmol/L Carbon Dioxide 21 L (22-30) mmol/L Anion Gap 11 mmol/L BUN 13 (7-17) mg/dL Creatinine 0.42 L (0.52-1.04) mg/dL Est GFR (CKD-EPI)AfAm >90 (>60 ml/min/1.73 sqM) Est GFR (CKD-EPI)NonAf >90 (>60 ml/min/1.73 sqM) Glucose 308 H (74-99) mg/dL POC Glucose (mg/dL) 322 H (75-99) mg/dL POC Glu Sinter Press Operator ID Diamond Francis Calcium 9.1 (8.4-10.2) mg/dL Disposition Clinical Impression: Hyperglycemia Disposition: HOME SELF-CARE Condition: Good Instructions (If sedation given, give patient instructions): Diabetic Hyperglycemia (ED) Is patient prescribed a controlled substance at d/c from ED?: No Referrals: Izzy Graham MD [REFERRING] - 1-2 days
[2020-09-29 14:13] VITALS: BP 127/89; PULSE 84; RESP 16
[2020-09-29 14:18] LABS: Basophils % (A) 0 %; Eosinophils # (A) 0.2 k/uL (0-0.7); Eosinophils % (A) 2 %; HCT 43.1 % (34.0-46.0); HGB 14.5 gm/dL (11.4-16.0); Lymphocytes # (A) 2.2 k/uL (1.0-4.8); Lymphocytes % (A) 22 %; MCH 29.8 pg (25.0-35.0); MCHC 33.5 g/dL (31.0-37.0); Monocytes # (A) 0.4 k/uL (0-1.0); Monocytes % (A) 4 %; Neutrophils # (A) 7.2 k/uL (1.3-7.7); Neutrophils % (A) 71 %; Platelet Count 379 k/uL (150-450); RBC 4.85 m/uL (3.80-5.40); RDW 13.5 % (11.5-15.5); WBC 10.1 k/uL (3.8-10.6)
[2020-09-29 14:28] LABS: African American GFR (CKD) >90 (>60 ml/min/1.73 sqM); Anion Gap 11 mmol/L; Blood Urea Nitrogen 13 mg/dL (7-17); Calcium 9.1 mg/dL (8.4-10.2); Carbon Dioxide 21 mmol/L (22-30); Chloride 104 mmol/L (98-107); Glucose 308 mg/dL (74-99); Non-African American GFR(CKD) >90 (>60 ml/min/1.73 sqM); Potassium 4.4 mmol/L (3.5-5.1); Sodium 136 mmol/L (137-145)
[2020-09-29] MEDS ORDERED: INSULIN REGULAR 100 UNIT/ML VIAL IV ONE (14:31)
[2020-09-29] MEDS ORDERED: SODIUM CHLORIDE 0.9% 1,000 ML IV STA (14:31)
[2020-09-29 15:24] LABS: Glucose,Whole Blood 161 mg/dL (75-99)
== END 2020-09-29 16:14 | disposition home or self-care (01) ==
LOC: EC 12:04
DX: E11.65 Type 2 diabetes mellitus with hyperglycemia (principal); I10 Essential (primary) hypertension; M19.90 Unspecified osteoarthritis, unspecified site; E28.2 Polycystic ovarian syndrome; F41.9 Anxiety disorder, unspecified; F32.9 Major depressive disorder, single episode, unspecified; Z79.1 Long term (current) use of non-steroidal anti-inflammatories (NSAID); Z79.4 Long term (current) use of insulin
CPT/HCPCS: 36415; 80048; 85025; 99283

== ENCOUNTER 2021-09-29 08:56 | Emergency (ER) | payer BC ==
[2021-09-29 09:17] VITALS: RESP 16; TEMP 98.2
[2021-09-29] MEDS ORDERED: SODIUM CHLORIDE 0.9% 1,000 ML IV STA (09:32)
[2021-09-29] MEDS ORDERED: MECLIZINE 12.5 MG TAB PO STA (09:32)
--- NOTE | 2021-09-29 09:37 | ED ---
Dizziness HPI - General Chief Complaint: Dizziness Stated Complaint: dizziness Time Seen by Provider: 09/29/21 09:19 Source: patient, family, RN notes reviewed Mode of arrival: wheelchair Limitations: no limitations - History of Present Illness Initial Comments: This is a 41-year-old female who presents to the emergency department for dizziness. She states that when she woke up this morning, she went to make breakfast and sat down, and then she suddenly felt like she lost control of her body and fell to the floor. She's never had symptoms like this before. She still feels dizzy while in the emergency department. She does feel like the dizziness gets worse when she turns her head in any direction. Denies any nausea, vomiting, or hx of vertigo. Patient denies any fevers, chills, sore throat, visual changes, cough, dyspnea, chest pain, palpitations, abdominal pain, nausea, vomiting, diarrhea, constipation, dysuria, hematuria, back pain, headaches, or weakness. MD Complaint: dizziness Timing: sudden onset History of Same: No - Related Data Home Medications Medication Instructions Recorded Confirmed Dapagliflozin Propanediol [Farxiga] 10 mg PO HS 02/01/19 06/11/19 Zolpidem Tartrate [Ambien] 10 mg PO HS PRN 02/01/19 06/11/19 lisinopriL [Zestril] 5 mg PO HS 02/01/19 06/11/19 sitaGLIPtin PHOSPHATE [Januvia] 100 mg PO HS 02/01/19 06/11/19 DULoxetine HCL [Cymbalta] 60 mg PO DAILY 06/09/19 06/11/19 Ibuprofen [Motrin] 600 mg PO DIRECTED PRN 06/09/19 06/09/19 Previous Rx's Medication Instructions Recorded Acetaminophen [Tylenol] 650 mg PO Q6HR PRN #30 capsule 06/11/19 Naproxen [Naprosyn] 375 mg PO Q12HR PRN #30 tablet 06/11/19 Meclizine [Antivert] 25 mg PO BID PRN #25 tab 09/29/21 Metoclopramide [Reglan] 10 mg PO TID PRN #25 tab 09/29/21 Allergies Allergy/AdvReac Type Severity Reaction Status Date / Time metformin Allergy Nausea/Vomiting/Diarrhea/STOMACH Verified 05/21/22 09:14 PAIN Review of Systems ROS Statement: Those systems with pertinent positive or pertinent negative responses have been documented in the HPI. ROS Other: All systems not noted in ROS Statement are negative. Past Medical History Past Medical History: Diabetes Mellitus, Hypertension, Osteoarthritis (OA) Additional Past Medical History / Comment(s): POLYCYSTIC OVARIAN SYNDROME. Va ricose veins. History of Any Multi-Drug Resistant Organisms: None Reported Past Surgical History: Breast Surgery Additional Past Surgical History / Comment(s): BREAST BIOPSY. WISDOM TEETH Past Anesthesia/Blood Transfusion Reactions: Motion Sickness Past Psychological History: Anxiety, Depression Smoking Status: Never smoker Past Alcohol Use History: None Reported Past Drug Use History: None Reported - Past Family History Mother Family Medical History: No Reported History General Exam Limitations: no limitations Course Vital Signs 09/29/21 09/29/21 09/29/21 09:14 12:00 13:00 Temperature 98.2 F Pulse Rate 85 81 88 Respiratory 16 16 16 Rate Blood Pressure 118/77 121/81 115/71 O2 Sat by Pulse 98 97 97 Oximetry Medical Decision Making - Medical Decision Making This is a 41-year-old female who presents to the emergency department for dizziness. Given that symptoms are positional, this is most likely related to vertigo. She was given meclizine, fluids, and Reglan in the emergency department, and noted significant improvement in symptoms. Lab work revealed no abnormalities. Discussed with the patient that given the improvement in her symptoms, this is most likely related to vertigo and a CT is unlikely to reveal anything. I did offer to proceed with a CT scan if she felt like she needed one, however she declined. Rx for Meclizine and Reglan sent to the pharmacy. Advised she try taking these if symptoms return. Return precautions reviewed in depth, the patient is instructed to return to the emergency department with any new, worsening, or concerning symptoms. Patient verbalized understanding. This case was discussed in detail with the attending ED physician. Presentation, findings, and treatment plan discussed in detail as well. - Lab Data Result diagrams: 09/29/21 09:59 09/29/21 09:59 Lab Results 09/29/21 09/29/21 09/29/21 Range/Units 09:59 09:59 09:59 WBC 12.1 H (3.8-10.6) k/uL RBC 4.67 (3.80-5.40) m/uL Hgb 12.6 (11.4-16.0) gm/dL Hct 41.3 (34.0-46.0) % MCV 88.6 (80.0-100.0) fL MCH 27.1 (25.0-35.0) pg MCHC 30.6 L (31.0-37.0) g/dL RDW 14.8 (11.5-15.5) % Plt Count 374 (150-450) k/uL MPV 6.9 Neutrophils % 77 % Lymphocytes % 17 % Monocytes % 4 % Eosinophils % 1 % Basophils % 1 % Neutrophils # 9.3 H (1.3-7.7) k/uL Lymphocytes # 2.0 (1.0-4.8) k/uL Monocytes # 0.5 (0-1.0) k/uL Eosinophils # 0.1 (0-0.7) k/uL Basophils # 0.1 (0-0.2) k/uL Sodium 138 (137-145) mmol/L Potassium 4.3 (3.5-5.1) mmol/L Chloride 103 (98-107) mmol/L Carbon Dioxide 27 (22-30) mmol/L Anion Gap 8 mmol/L BUN 14 (7-17) mg/dL Creatinine 0.59 (0.52-1.04) mg/dL Est GFR (CKD-EPI)AfAm >90 (>60 ml/min/1.73 sqM) Est GFR (CKD-EPI)NonAf >90 (>60 ml/min/1.73 sqM) Glucose 206 H (74-99) mg/dL Calcium 8.8 (8.4-10.2) mg/dL Total Bilirubin 0.4 (0.2-1.3) mg/dL AST 16 (14-36) U/L ALT 20 (4-34) U/L Alkaline Phosphatase 81 (38-126) U/L Troponin I (0.000-0.034) ng/mL Total Protein 7.1 (6.3-8.2) g/dL Albumin 4.0 (3.5-5.0) g/dL TSH 0.500 (0.465-4.680) mIU/L Urine Color Yellow Urine Appearance Cloudy H (Clear) Urine pH 5.5 (5.0-8.0) Ur Specific [place] 1.022 (1.001-1.035) Urine Protein Negative (Negative) Urine Glucose (UA) 1+ H (Negative) Urine Ketones Negative (Negative) Urine Blood Negative (Negative) Urine Nitrite Negative (Negative) Urine Bilirubin Negative (Negative) Urine Urobilinogen <2.0 (<2.0) mg/dL Ur Leukocyte Esterase Moderate H (Negative) Urine RBC 3 (0-5) /hpf Urine WBC 3 (0-5) /hpf Ur Squamous Epith Cells 21 H (0-4) /hpf Urine Bacteria Rare H (None) /hpf Urine Mucus Occasional H (None) /hpf Urine HCG, Qual (Not Detectd) 09/29/21 09/29/21 Range/Units 09:59 09:59 WBC (3.8-10.6) k/uL RBC (3.80-5.40) m/uL Hgb (11.4-16.0) gm/dL Hct (34.0-46.0) % MCV (80.0-100.0) fL MCH (25.0-35.0) pg MCHC (31.0-37.0) g/dL RDW (11.5-15.5) % Plt Count (150-450) k/uL MPV Neutrophils % % Lymphocytes % % Monocytes % % Eosinophils % % Basophils % % Neutrophils # (1.3-7.7) k/uL Lymphocytes # (1.0-4.8) k/uL Monocytes # (0-1.0) k/uL Eosinophils # (0-0.7) k/uL Basophils # (0-0.2) k/uL Sodium (137-145) mmol/L Potassium (3.5-5.1) mmol/L Chloride (98-107) mmol/L Carbon Dioxide (22-30) mmol/L Anion Gap mmol/L BUN (7-17) mg/dL Creatinine (0.52-1.04) mg/dL Est GFR (CKD-EPI)AfAm (>60 ml/min/1.73 sqM) Est GFR (CKD-EPI)NonAf (>60 ml/min/1.73 sqM) Glucose (74-99) mg/dL Calcium (8.4-10.2) mg/dL Total Bilirubin (0.2-1.3) mg/dL AST (14-36) U/L ALT (4-34) U/L Alkaline Phosphatase (38-126) U/L Troponin I <0.012 (0.000-0.034) ng/mL Total Protein (6.3-8.2) g/dL Albumin (3.5-5.0) g/dL TSH (0.465-4.680) mIU/L Urine Color Urine Appearance (Clear) Urine pH (5.0-8.0) Ur Specific [place] (1.001-1.035) Urine Protein (Negative) Urine Glucose (UA) (Negative) Urine Ketones (Negative) Urine Blood (Negative) Urine Nitrite (Negative) Urine Bilirubin (Negative) Urine Urobilinogen (<2.0) mg/dL Ur Leukocyte Esterase (Negative) Urine RBC (0-5) /hpf Urine WBC (0-5) /hpf Ur Squamous Epith Cells (0-4) /hpf Urine Bacteria (None) /hpf Urine Mucus (None) /hpf Urine HCG, Qual Not Detected (Not Detectd) - EKG Data EKG Comments: Sinus rhythm with short SC interval. Ventricular rate 80 beats per minute, SC interval 119 ms, QRS duration 97 ms, and QTC 423 ms. - Radiology Data Radiology results: report reviewed, image reviewed Disposition Clinical Impression: BPPV (benign paroxysmal positional vertigo) Disposition: HOME SELF-CARE Instructions (If sedation given, give patient instructions): Vertigo (ED), Benign Paroxysmal Positional Vertigo (ED), Dizziness (ED) Prescriptions: Meclizine [Antivert] 25 mg PO BID PRN #25 tab PRN Reason: Vertigo Metoclopramide [Reglan] 10 mg PO TID PRN #25 tab PRN Reason: Vertigo Is patient prescribed a controlled substance at d/c from ED?: No Referrals: Artie Angel DO [Primary Care Provider] - 1-2 days
[2021-09-29 10:13] LABS: Basophils # (A) 0.1 k/uL (0-0.2); Basophils % (A) 1 %; Eosinophils # (A) 0.1 k/uL (0-0.7); Eosinophils % (A) 1 %; HCT 41.3 % (34.0-46.0); HGB 12.6 gm/dL (11.4-16.0); Lymphocytes % (A) 17 %; MCH 27.1 pg (25.0-35.0); MCHC 30.6 g/dL (31.0-37.0); MCV 88.6 fL (80.0-100.0); Mean Platelet Volume 6.9; Monocytes # (A) 0.5 k/uL (0-1.0); Monocytes % (A) 4 %; Neutrophils # (A) 9.3 k/uL (1.3-7.7); Neutrophils % (A) 77 %; Platelet Count 374 k/uL (150-450); RBC 4.67 m/uL (3.80-5.40); RDW 14.8 % (11.5-15.5); WBC 12.1 k/uL (3.8-10.6)
[2021-09-29 10:18] LABS: ALT 20 U/L (4-34); AST 16 U/L (14-36); African American GFR (CKD) >90 (>60 ml/min/1.73 sqM); Alkaline Phosphatase 81 U/L (38-126); Anion Gap 8 mmol/L; Blood Urea Nitrogen 14 mg/dL (7-17); Calcium 8.8 mg/dL (8.4-10.2); Carbon Dioxide 27 mmol/L (22-30); Chloride 103 mmol/L (98-107); Glucose 206 mg/dL (74-99); Non-African American GFR(CKD) >90 (>60 ml/min/1.73 sqM); Potassium 4.3 mmol/L (3.5-5.1); Sodium 138 mmol/L (137-145); Total Bilirubin 0.4 mg/dL (0.2-1.3); Total Protein 7.1 g/dL (6.3-8.2)
[2021-09-29 11:35] LABS: Appearance,Urine Cloudy (Clear); Bacteria,Urine Rare /hpf; Bilirubin,Urine Negative (Negative); Blood,Urine Negative (Negative); Color,Urine Yellow; Glucose,Urine (UA) 1+ (Negative); Ketones,Urine Negative (Negative); Leukocyte Esterase,Urine Moderate (Negative); Mucus,Urine Occasional /hpf; Nitrite,Urine Negative (Negative); PH, Urine 5.5 (5.0-8.0); Protein,Urine Negative (Negative); RBC,Urine 3 /hpf (0-5); Specific Gravity,Urine 1.022 (1.001-1.035); Squamous Epithelial Cell,Urine 21 /hpf (0-4); Urobilinogen,Urine <2.0 mg/dL (<2.0); WBC,Urine 3 /hpf (0-5)
[2021-09-29] MEDS ORDERED: METOCLOPRAMIDE 5 MG/ML 2 ML VIAL IVP STA (12:11)
[2021-09-29 14:15] VITALS: BP 128/81; PULSE 89
== END 2021-09-29 14:15 | disposition home or self-care (01) ==
LOC: EC 08:56
DX: H81.10 Benign paroxysmal vertigo, unspecified ear (principal); E11.9 Type 2 diabetes mellitus without complications; I10 Essential (primary) hypertension; Z88.8 Allergy status to other drugs, medicaments and biological substances
CPT/HCPCS: 36415; 93005; 80053; 84443; 84484; 85025; 81001; 81025; 99284; 96374; 96361; J2765

== ENCOUNTER → 2022-10-04 | Outpatient (CLI) | payer BC ==
[2022-10-04 10:51] LABS: Basophils # (A) 0.05 X 10*3/uL (0.00-0.10); Basophils % (A) 0.6 %; Eosinophils # (A) 0.11 X 10*3/uL (0.04-0.35); Eosinophils % (A) 1.3 %; HCT 39.5 % (37.2-46.3); Immature Grans, Automated 0.2 %; Lymphocytes # (A) 1.93 X 10*3/uL (0.90-5.00); Lymphocytes % (A) 23.2 %; MCH 26.9 pg (27.0-32.0); MCHC 30.4 g/dL (32.0-37.0); MCV 88.6 fL (80.0-97.0); Mean Platelet Volume 10.1 fL (9.5-12.2); Monocytes # (A) 0.44 X 10*3/uL (0.20-1.00); Monocytes % (A) 5.3 %; NRBC Per 100 WBC 0 /100 WBCS (0.0-0.0); Neutrophils # (A) 5.78 X 10*3/uL (1.80-7.70); Neutrophils % (A) 69.4 %; Platelet Count 344 X 10*3/uL (140-440); RBC 4.46 X 10*6/uL (4.10-5.20); RDW 14.4 % (11.5-14.5); WBC 8.33 X 10*3/uL (4.50-10.00)
[2022-10-04 11:11] LABS: Immunoglobulin E 6.16 IU/mL (0.00-114.00)
[2022-10-04 11:22] LABS: ALT 31 U/L (8-44); AST 15 U/L (13-35); African American GFR (CKD) 124.7 (60.0-200.0); Albumin 3.9 g/dL (3.8-4.9); Albumin/Globulin Ratio 1.44 (1.60-3.17); Alkaline Phosphatase 72 U/L (41-126); Amylase 46 U/L (23-121); BUN/Creat Ratio 22.86 Ratio (12.00-20.00); Calcium 9.5 mg/dL (8.7-10.3); Carbon Dioxide 23.9 mmol/L (20.0-27.5); Chloride 102 mmol/L (96-109); Chol/HDL Ratio 4.01 Ratio; Globulin 2.7 g/dL (1.6-3.3); Glucose 229 mg/dL (70-110); LDL Cholesterol,Calculated 86.6 mg/dL (0.0-131.0); Lipase 38 U/L (14-63); Non-African American GFR(CKD) 107.6 (60.0-200.0); Potassium 4.5 mmol/L (3.5-5.5); Sodium 139 mmol/L (135-145); Total Protein 6.6 g/dL (6.2-8.2)
[2022-10-04 13:38] LABS: Gliadin AB IgA, Deaminated NEGATIVE (NEGATIVE); Gliadin AB IgA, Unit 0.3 U/mL; Gliadin AB IgG, Deaminated NEGATIVE (NEGATIVE); Gliadin AB IgG, Unit <0.4 U/mL
[2022-10-04 21:28] LABS: Clam IgE <0.10 kU/L; Codfish IgE <0.10 kU/L; Egg White IgE <0.10 kU/L; Peanut IgE <0.10 kU/L; Scallop IgE <0.10 kU/L; Shrimp IgE <0.10 kU/L; Soybean IgE <0.10 kU/L; Walnut IgE (Food) <0.10 kU/L
== END | disposition home or self-care (01) ==
LOC: LABWHC1 07:44
PROVIDERS: ATTEND Nurse Practitioner Family
DX: I10 Essential (primary) hypertension (principal); K58.0 Irritable bowel syndrome with diarrhea
CPT/HCPCS: 36415; 80053; 80061; 82150; 82785; 83516; 83690; 84443; 84481; 85025; 86003

== ENCOUNTER → 2023-04-12 | Outpatient (CLI) | payer BC ==
[2023-04-12 23:15] LABS: ALT 20 U/L (8-44); AST 13 U/L (13-35); Albumin 4.2 g/dL (3.8-4.9); Albumin/Globulin Ratio 1.45 Ratio (1.60-3.17); Alkaline Phosphatase 94 U/L (41-126); BUN/Creat Ratio 22.67 Ratio (12.00-20.00); Blood Urea Nitrogen 13.6 mg/dL (9.0-27.0); Calcium 9.4 mg/dL (8.7-10.3); Carbon Dioxide 22.6 mmol/L (21.6-31.8); Chloride 101 mmol/L (96-109); Chol/HDL Ratio 4.93 Ratio; Globulin 2.9 g/dL (1.6-3.3); Glucose 321 mg/dL (70-110); LDL Cholesterol,Calculated 115.7 mg/dL (0.0-131.0); Potassium 4.7 mmol/L (3.5-5.5); Sodium 137 mmol/L (135-145); Total Bilirubin 0.5 mg/dL (0.3-1.2); Total Protein 7.1 g/dL (6.2-8.2)
== END | disposition home or self-care (01) ==
LOC: LABWHC1 11:08
PROVIDERS: ATTEND Internal Medicine Endocrinology, Diabetes & Metabolism
DX: E11.65 Type 2 diabetes mellitus with hyperglycemia (principal)
CPT/HCPCS: 36415; 80053; 80061; 82043; 82570; 83036; 84443